=== PATIENT | female | born 1980 | race Caucasian/White ===

== ENCOUNTER 2018-05-01 15:34 | Emergency (ER) | payer OTHER ==
[2015-04-02 09:27] VITALS: Wt 78.5 kg
[~2018-05-01 15:34] MED LIST: ACET-1718 PO; ACET-3017 PO; CYCL10TA29 PO; FERR-41 PO; IBUP800T37 PO; OXYC-865 PO; PNV PO
--- NOTE | 2018-05-01 15:44 | ER Report ---
History and Physical Time Seen By MD: 15:42 Hx. of Stated Complaint: COUGH, FEVER SINCE YESTERDAY HPI/ROS CHIEF COMPLAINT: Flulike symptoms HISTORY OF PRESENT ILLNESS: Otherwise other than recent no femoral comes in with 1 day of influenza type symptoms general fatigue and malaise to the temperature 101.3 Tylenol or Naprosyn feels better no sore throat mild nonproductive cough no nausea vomiting diarrhea no abdominal pain no chest pain works at [employer] REVIEW OF SYSTEMS: Respiratory: Nonproductive cough no shortness of breath Cardiovascular: No chest pain, no palpitations. Gastrointestinal: No vomiting, no abdominal pain. Musculoskeletal: No back pain. Remainder of the 14 system rev: Yes Allergies: Coded Allergies: No Known Drug Allergies (Unverified , 11/22/15) Home Meds Discontinued Scripts Cyclobenzaprine Hcl (CYCLOBENZAPRINE HCL) 10 Mg Tablet, 10 MG PO TID, #20 TAB TAKE 1 TABLET BY MOUTH THREE TIMES A DAY Prov:ANAMARIA DODSON DO 11/22/15 Oxycodone Hcl/Acetaminophen (PERCOCET 5-325 MG TABLET) 1 Each Tablet, 1 EACH PO Q6-8H, #20 Prov:ANAMARIA DODSON DO 11/22/15 Reviewed Nurses Notes: Yes Old Medical Records Reviewed: Yes Hx Smoking: No Smoking Status: Never Smoker Exposure to Second Hand Smoke?: No Hx Substance Use Disorder: No Hx Alcohol Use: No Constitutional Vital Sign - Last 24 Hours 05/01/18 15:41 Temp 99.6 Pulse 87 Resp 20 B/P (MAP) 93/58 Pulse Ox 92 O2 Delivery Room Air Physical Exam General Appearance: [The patient is alert, has no immediate need for airway protection and no current signs of toxicity.] [ ] Eyes: Pupils equal and round no injection. Respiratory: Chest is non tender, lungs are clear to auscultation. Cardiac: regular rate and rhythm [ ] Gastrointestinal: Abdomen is soft and non tender, no masses, bowel sounds normal. Musculoskeletal: Neck: Neck is supple and non tender. Extremities have full range of motion and are non tender. Skin: No rashes or lesions. HEENT negative DIFFERENTIAL DIAGNOSIS: After history and physical exam differential diagnosis was considered for influenza viral infection about upper respiratory Medical Decision Making Data Points Laboratory Hematology Test 05/01/18 15:39 Influenza Virus Type A (PCR) Negative (NEGATIVE) Influenza Virus Type B (PCR) Negative (NEGATIVE) Chemistry Test 05/01/18 15:39 Influenza Virus Type A (PCR) Negative (NEGATIVE) Influenza Virus Type B (PCR) Negative (NEGATIVE) ED Course/Re-evaluation ED Course ED course recent no female flulike symptoms she is flu negative chest x-ray negative this a viral upper respiratory Decision to Disposition Date: May 01, 2018 Decision to Disposition Time: 16:48 Depart Departure Latest Vital Signs Vital Signs Date Time Temp Pulse Resp B/P (MAP) Pulse Ox O2 Delivery O2 Flow Rate FiO2 05/01/18 15:41 99.6 87 20 93/58 92 Room Air Impression: Primary Impression: Viral upper respiratory illness Condition: Improved Disposition: HOME OR SELF-CARE Referrals: MARCELINA GARCIA APRN-C 5 Days New Scripts No Active Prescriptions or Reported Meds Patient Instructions: Upper Respiratory Infection (DC) ARNOLDO JAEGER MD May 01, 2018 15:43
--- NOTE | 2018-05-01 16:42 | RADIOLOGY IMAGING REPORT ---
FACILITY: [facility] PATIENT NAME: Viri Marley : 1980 MR: [id number] V: [id number] EXAM DATE: ORDERING PHYSICIAN: ARNOLDO JAEGER TECHNOLOGIST: Location: [facility] [place] Patient: Viri Marley : 1980 Visit/Account:[id number] Date of Sevice: 05/01/2018 CHEST PA LAT HISTORY: Cough. COMPARISON: None available. FINDINGS: Lines/tubes: None. Lungs/pleura: Negative. Heart: Negative. Mediastinum: Negative. Bony structures/body wall: Negative. IMPRESSION: No acute cardiopulmonary process. Report Dictated By: Jim Polk MD at 05/01/2018 4:36 PM Report E-Signed By: Jim Polk MD at 05/01/2018 4:38 PM WSN:[id number]
[2018-05-01 16:54] VITALS: BP 84/56
== END 2018-05-01 16:55 | disposition home or self-care (01) ==
LOC: ER 15:49
DX: J06.9 Acute upper respiratory infection, unspecified (principal)
CPT/HCPCS: 71046; 87502; 99283